=== PATIENT | female | born 1990 | race Two or more races ===

== ENCOUNTER 2016-12-04 15:32 | Emergency (ER) | payer MEDICAID ==
[~2016-12-04] VITALS: Ht 162.6 cm; Wt 69.9 kg
[2016-12-04] MEDS ORDERED: fentaNYL PF VIAL 100 MCG/2 ML VIAL IV PRN (16:00)
[2016-12-04 16:11] LABS: BASO # 0.1 x10^3/uL (0.0-0.2); BASO % 1 % (0-3); EOS % 2 % (0-3); HEMATOCRIT 36.8 % (36.0-47.0); HEMOGLOBIN 12.5 g/dL (12.0-15.5); LYMPH # 2.1 x10^3/uL (1.0-4.8); LYMPH % 24 % (24-48); MEAN CORPUSCULAR HEMOGLOBIN 29 pg (25-35); MEAN CORPUSCULAR HGB CONC 34 g/dL (31-37); MEAN CORPUSCULAR VOLUME 85 fL (79-100); MONO % 5 % (0-9); NEUT % 69 % (31-73); PLATELET COUNT 234 x10^3/uL (140-400); RED BLOOD COUNT 4.33 x10^6/uL (3.50-5.40); RED CELL DISTRIBUTION WIDTH 12.2 % (11.5-14.5); WHITE BLOOD COUNT 8.9 x10^3/uL (4.0-11.0)
--- NOTE | 2016-12-04 16:57 | RAD ---
Obstetrical ultrasound, 12/04/2016: History: Left adnexal pain Transabdominal and transvaginal scans were obtained. The uterus contains a single gestational sac. The gestational sac contains a yolk sac and a pole measuring 3 mm in length. This suggests a gestational age of 5 weeks and 6 days yielding a sonographic EDC of 07/31/2017. cardiac motion is evident with a heart rate of 113 bpm. There is no evidence of subchorionic hemorrhage. The ovaries are of normal size. There is a thick-walled 1.8 cm cyst in the right ovary. A similar small structure is present in the left ovary. The adnexal regions are otherwise unremarkable. No free fluid is evident in the pelvis. IMPRESSION: 1. Single viable intrauterine fetus of 5-6 weeks gestational age. 2. Small thick-walled cysts in both ovaries.
--- NOTE | 2016-12-04 17:16 | PHYS DOC ---
Past Medical History Past Medical History: Other Additional Past Medical Histor: gallstones Past Surgical History: , Tubal ligation Alcohol Use: Rarely Drug Use: None Adult General Chief Complaint Chief Complaint: ABDOMINAL PAIN IN HPI HPI Patient is a 26 year old female with a complaint of discomfort across her lower abdomen and lower back for about 1-1/2-2 weeks. Patient states she had a positive test at home. Her last period was approximately October 16 through the . She missed a menstrual period and also had some nausea and vomiting, she was concerned she might be and took a test. The patient did have her tubes tied 2 years ago at [facility]. Patient is 4 para 3. She has a 7-year-old, 5-year-old, and 2-year-old twins. Her twins were delivered at [place] and she had her tubes tied. Patient has had no vaginal spotting or bleeding. Her discomfort is across her entire lower abdomen front and back, not in one side or the other. She does have a [facility] appointment in 2 weeks at [facility]. Review of Systems Review of Systems Constitutional: Denies fever or chills [] GI: As in history of present illness, some nausea and vomiting, no pain above the pelvis area : Denies urinary frequency or dysuria Musculoskeletal: Denies back pain or joint pain [] Current Medications Current Medications Current Medications Medications (Trade) Dose Ordered Sig/[facility] Start Time Stop Time Status Last Admin Dose Admin Fentanyl Citrate (Fentanyl 2ml Vial) 50 mcg PRN Q15MIN PRN 12/04/16 16:00 12/04/16 18:04 DC 12/04/16 16:12 50 MCG Allergies Allergies Allergies Coded Allergies Type Severity Reaction Last Updated Verified No Known Drug Allergies 06/24/15 No Physical Exam Physical Exam Constitutional: Well developed, well nourished, no acute distress, non-toxic appearance. Alert, mentating normally, warm and dry. HENT: Normocephalic, atraumatic, bilateral external ears normal, nose normal. [ ] Eyes: conjunctiva normal, no discharge. [] Neck: Normal range of motion, no stridor. [] Abdomen: Bowel sounds normal, soft, no masses, no pulsatile masses. Mild tenderness to palpation across the lower abdomen, nonlocalized, no rebound or guarding. Skin: Warm, dry, no erythema, no rash. [] Extremities: No tenderness, no cyanosis, no clubbing, ROM intact, no edema. [] Neurologic: Alert and oriented X 3, normal motor function, normal sensory function, no focal deficits noted. [] Current Patient Data Vital Signs Vital Signs Date Time Temp Pulse Resp B/P (MAP) Pulse Ox O2 Delivery O2 Flow Rate FiO2 12/04/16 17:17 68 111/60 (77) 94 Room Air 12/04/16 16:12 16 12/04/16 15:45 98.4 98.4 Lab Values Laboratory Tests Test 12/04/16 14:51 12/04/16 16:04 POC Urine HCG, Qualitative Hcg positive (Negative) White Blood Count 8.9 x10^3/uL (4.0-11.0) Red Blood Count 4.33 x10^6/uL (3.50-5.40) Hemoglobin 12.5 g/dL (12.0-15.5) Hematocrit 36.8 % (36.0-47.0) Mean Corpuscular Volume 85 fL (79-100) Mean Corpuscular Hemoglobin 29 pg (25-35) Mean Corpuscular Hemoglobin Concent 34 g/dL (31-37) Red Cell Distribution Width 12.2 % (11.5-14.5) Platelet Count 234 x10^3/uL (140-400) Neutrophils (%) (Auto) 69 % (31-73) Lymphocytes (%) (Auto) 24 % (24-48) Monocytes (%) (Auto) 5 % (0-9) Eosinophils (%) (Auto) 2 % (0-3) Basophils (%) (Auto) 1 % (0-3) Neutrophils # (Auto) 6.1 x10^3uL (1.8-7.7) Lymphocytes # (Auto) 2.1 x10^3/uL (1.0-4.8) Monocytes # (Auto) 0.5 x10^3/uL (0.0-1.1) Eosinophils # (Auto) 0.2 x10^3/uL (0.0-0.7) Basophils # (Auto) 0.1 x10^3/uL (0.0-0.2) Maternal Serum HCG Beta Subunit 94455 mIU/mL (0-5) H Laboratory Tests 12/04/16 16:04 EKG EKG [] Radiology/Procedures Radiology/Procedures Ultrasound read by the radiologist. Intrauterine 5 weeks 6 days with positive heart activity, no evidence of subchorionic hemorrhaging, no evidence of other complication. Both ovaries have small cysts, no free fluid.[] Course & Med Decision Making Course & Med Decision Making Pertinent Labs and Imaging studies reviewed. (See chart for details) 26-year-old female who is after a tubal ligation, ultrasound shows intrauterine with no free fluid. Discussed follow-up with the patient , she does have follow-up in place. See instructions for plan. [] Dragon Disclaimer Dragon Disclaimer This electronic medical record was generated, in whole or in part, using a voice recognition dictation system. Departure Departure Impression: Primary Impression: Intrauterine Disposition: 01 HOME, SELF-CARE Condition: STABLE Referrals: NO PCP (PCP) Patient Instructions: - First Trimester, [id number] Additional Instructions: Continue to drink plenty of fluids and take vitamins. Call tomorrow to see about getting your appointment sooner. RENEE GALLO MD Dec 04, 2016 17:16
[2016-12-04 17:17] VITALS: BP 111/60
== END 2016-12-04 18:03 | disposition home or self-care (01) ==
LOC: ER 15:32
DX: O34.81 Maternal care for other abnormalities of pelvic organs, first trimester (principal); O21.9 Vomiting of pregnancy, unspecified; R11.0 Nausea; Z98.51 Tubal ligation status; Z3A.01 Less than 8 weeks gestation of pregnancy; Z98.890 Other specified postprocedural states
CPT/HCPCS: 36415; 76801; 76817; 81025; 84702; 85025; 86900; 86901; 96374; 99285; J3010